=== PATIENT | male | born 1950 | race Caucasian/White ===

== ENCOUNTER 2022-02-23 12:16 | Emergency (ER) | payer OTHER ==
[~2022-02-23] VITALS: Ht 177.8 cm; Wt 112.5 kg
[2022-02-23 13:46] LABS: EOSINOPHILS % (AUTO) 1.8 % (0.0-8.0); HEMATOCRIT 39.3 % (42-54); LYMPHOCYTES % (AUTO) 18.3 % (21.0-51.0); MEAN CORPUSCULAR HEMOGLOBIN 29.5 pg (27.0-33.0); MEAN CORPUSCULAR HGB CONC 33.6 g/dL (32.0-36.0); MEAN CORPUSCULAR VOLUME 87.9 fL (79-99); MONOCYTES % (AUTO) 8.2 % (3.0-13.0); NEUTROPHILS % (AUTO) 70.1 % (40.0-77.0); PLATELET COUNT (AUTO) 317 K/uL (130-400); RED BLOOD CELL COUNT(AUTO) 4.47 MIL/uL (4.50-6.20); RED CELL DISTRIBUTION WIDTH 14.5 % (11.0-15.5); WHITE BLOOD COUNT (AUTO) 10.2 K/uL (4.8-10.8)
[2022-02-23 13:53] LABS: CREATININE 1.3 mg/dL (0.5-1.5); POTASSIUM 4.6 mmol/L (3.5-5.1)
[2022-02-23 13:58] LABS: ALBUMIN 3.8 g/dL (3.5-5.0); TOTAL PROTEIN, SERUM 7.4 g/dL (6.0-8.3)
[2022-02-23] MEDS ORDERED: BENZ-39 PO (14:27)
[2022-02-23] MEDS ORDERED: AZIT250T9 PO (14:27)
[2022-02-23] MEDS ORDERED: MOLN200C PO (14:37)
[2022-02-23 14:59] VITALS: BP 115/65
== END 2022-02-23 14:36 | disposition home or self-care (01) ==
LOC: EDH 12:16
DX: U07.1 COVID-19 (principal); J06.9 Acute upper respiratory infection, unspecified; R05.8 Other specified cough; R09.3 Abnormal sputum
CPT/HCPCS: 99284; 71046; 87635; 80053; 85025; 87880; 87804 ×2; 36415; C9803